=== PATIENT | male | born 1950 | race Caucasian/White ===

== ENCOUNTER 2023-10-22 21:08 | Emergency (ER) | payer OTHER ==
[~2023-10-22] VITALS: Ht 180.3 cm; Wt 87.0 kg
[2023-10-22] MEDS ORDERED: COZAAR25 MG PO (22:31)
[2023-10-22] MEDS ORDERED: METFORMIN HCL500 M2 PO (22:31)
[2023-10-22] MEDS ORDERED: LIPITOR10 MG (22:31)
[2023-10-22] MEDS ORDERED: KETOROLAC TROMETHAMINE 60 MG/2 ML VIAL IM ONE (22:45)
[2023-10-22] MEDS ORDERED: TRAMADOL HCL 50 MG HOME.PACK PO ONE (23:45)
[2023-10-22] MEDS ORDERED: TRAMADOL HCL50 MG PO (23:48)
[2023-10-23 00:13] VITALS: BP 115/80
== END 2023-10-23 00:13 | disposition home or self-care (01) ==
LOC: ED 21:08
DX: S70.02XA Contusion of left hip, initial encounter (principal); E11.9 Type 2 diabetes mellitus without complications; W01.0XXA Fall on same level from slipping, tripping and stumbling without subsequent striking against object, initial encounter; Z79.84 Long term (current) use of oral hypoglycemic drugs; Z79.899 Other long term (current) drug therapy
CPT/HCPCS: 72100; 72170; A9270; J1885